=== PATIENT | female | born 1945 | race Caucasian/White ===

== ENCOUNTER 2022-05-24 10:04 | Emergency (ER) | payer BC ==
[~2022-05-24] VITALS: Ht 152.4 cm; Wt 96.2 kg
[2022-05-24 10:05] VITALS: BP_SYST 151
--- NOTE | 2022-05-24 10:05 | NUR ---
BROUGHT BACK TO BED #3 AND TRIAGED. REPORT GIVEN TO FABIO
--- NOTE | 2022-05-24 10:15 | NUR ---
RECEIVED PT FROM [facility]. PT BIB FAMILY WITH C/O LEFT LOWER JAW SWELLING X3 DAYS. SITE CLOSED WITH NOTED EDEMA AND REDNESS. STATES PAIN IS 5/10, THROBBING. PT IS AAOX4. BLIND IN BOTH EYES. NORMAL S1S2. ON R/A. DENIES N/V/D/C. DISTAL PULSE NORMAL, SKIN WARM. SIDERAILS UP X2. SON AT BEDSIDE.
--- NOTE | 2022-05-24 10:17 | NUR ---
DR. INFANTE AT BEDSIDE TO ASSESS PT.
[2022-05-24] MEDS ORDERED: ACETAMINOPHEN 500 MG TABLET PO ONE (10:30)
--- NOTE | 2022-05-24 10:35 | NUR ---
BLOOD OBTAINED AND TAKEN TO LAB.
[2022-05-24 10:41] LABS: BASOPHILS # (AUTO) 0.1 K/uL (0.0-0.2); BASOPHILS % (AUTO) 0.7 % (0.0-2.0); EOSINOPHILS # (AUTO) 0.2 K/uL (0.0-0.4); EOSINOPHILS % (AUTO) 1.7 % (0.0-4.0); HEMATOCRIT 37.3 % (36-48); HEMOGLOBIN 12.2 g/dL (12.0-16.0); LYMPHOCYTES # (AUTO) 0.9 K/uL (1.0-5.5); LYMPHOCYTES % (AUTO) 10.1 % (20.5-51.5); MEAN CORPUSCULAR HEMOGLOBIN 30 pg (27-31); MEAN CORPUSCULAR HGB CONC 33 % (32-36); MEAN CORPUSCULAR VOLUME 91 fL (79.0-98.0); MONOCYTES # (AUTO) 0.7 K/uL (0.0-1.0); MONOCYTES % (AUTO) 7.4 % (1.7-9.3); NEUTROPHILS # (AUTO) 7.3 K/uL (1.8-7.7); NEUTROPHILS % (AUTO) 80.1 % (40.0-70.0); PLATELET COUNT (AUTO) 242 K/uL (130-430); RED BLOOD CELL COUNT(AUTO) 4.09 MIL/uL (4.2-6.2); RED CELL DISTRIBUTION WIDTH 14.5 % (9.0-15.0); WHITE BLOOD COUNT (AUTO) 9.1 K/uL (4.8-10.8)
[2022-05-24 10:52] LABS: ERYTHROCYTE SEDIMENTATION RATE > 130 MM/HR (0-20)
[2022-05-24 10:55] LABS: ANION GAP 7 (5-15); CALCIUM 9.6 mg/dL (8.4-11.0); CHLORIDE 103 mmol/L (98-107); GLUCOSE 104 mg/dL (70-99); UREA NITROGEN, BLOOD 41 mg/dL (8-21)
[2022-05-24 11:00] LABS: ALANINE AMINOTRANSFERASE 16 U/L (12-78); ASPARTATE AMINOTRANSFERASE 16 U/L (10-37); TOTAL BILIRUBIN 0.4 mg/dL (0.0-1.0)
[2022-05-24 11:04] LABS: C-REACTIVE PROTEIN QUANT < 0.2 mg/dL (0-0.5)
--- NOTE | 2022-05-24 11:16 | NUR ---
PT TAKEN FOR CT OF FACE AT THIS TIME.
--- NOTE | 2022-05-24 11:24 | NUR ---
PT BACK FROM CT AND PLACED ON MONITOR.
[2022-05-24] MEDS ORDERED: CLIN-142 PO (12:06)
[2022-05-24] MEDS ORDERED: ACET-2634 PO (12:06)
[2022-05-24 13:01] VITALS: BP_SYST 142
--- NOTE | 2022-05-24 13:04 | NUR ---
Patient given written and verbal discharge instructions and verbalizes understanding. ER MD discussed with patient the results and treatment provided. Patient in stable condition. ID arm band removed. IV catheter removed intact and dressing applied, no active bleeding. Rx of TYLENOL,CLINDAMYCIN given. Patient educated on pain management and to follow up with PMD. Pain Scale 1/10. Opportunity for questions provided and answered. Medication side effect fact sheet provided.
== END 2022-05-24 13:01 | disposition home or self-care (01) ==
LOC: SED 10:04
DX: K11.20 Sialoadenitis, unspecified (principal); R22.0 Localized swelling, mass and lump, head; Z79.899 Other long term (current) drug therapy
CPT/HCPCS: 36415; 70486-TC; 76376; 80053; 85025; 85651-TC; 86140; 99284

== ENCOUNTER 2022-12-14 21:07 | Inpatient (IN) | payer BC ==
[~2022-12-14] VITALS: Ht 152.4 cm; Wt 109.8 kg
[~2022-12-14 21:07] MED LIST: ACET-2634 PO; CLIN-142 PO
[2022-12-14 21:13] VITALS: BP_SYST 140; PULSE 73; RESP 20; TEMP 97.6; O2SAT 93
[2022-12-14 22:38] LABS: BASOPHILS # (AUTO) 0.1 K/uL (0.0-0.2); BASOPHILS % (AUTO) 1.5 % (0.0-2.0); EOSINOPHILS # (AUTO) 0.2 K/uL (0.0-0.4); EOSINOPHILS % (AUTO) 3.7 % (0.0-4.0); LYMPHOCYTES # (AUTO) 0.9 K/uL (1.0-5.5); LYMPHOCYTES % (AUTO) 15.2 % (20.5-51.5); MEAN CORPUSCULAR HEMOGLOBIN 29 pg (27-31); MEAN CORPUSCULAR HGB CONC 32 % (32-36); MEAN CORPUSCULAR VOLUME 91 fL (79.0-98.0); MONOCYTES # (AUTO) 0.6 K/uL (0.0-1.0); MONOCYTES % (AUTO) 10.5 % (1.7-9.3); NEUTROPHILS # (AUTO) 4.3 K/uL (1.8-7.7); NEUTROPHILS % (AUTO) 69.1 % (40.0-70.0); PLATELET COUNT (AUTO) 235 K/uL (130-430); RED CELL DISTRIBUTION WIDTH 16.3 % (9.0-15.0); WHITE BLOOD COUNT (AUTO) 6.2 K/uL (4.8-10.8)
[2022-12-14 22:46] LABS: ALANINE AMINOTRANSFERASE 12 U/L (12-78); ALBUMIN 2.5 g/dL (3.4-4.8); ANION GAP 5 (5-15); ASPARTATE AMINOTRANSFERASE 15 U/L (10-37); CALCIUM 8.6 mg/dL (8.4-11.0); CARBON DIOXIDE 26 mmol/L (23-29); CHLORIDE 110 mmol/L (98-107); CREATININE 2.33 mg/dL (0.55-1.30); GLUCOSE 104 mg/dL (74-106); SODIUM SERUM 141 mmol/L (136-145); TOTAL BILIRUBIN 0.3 mg/dL (0.0-1.0); TOTAL PROTEIN, SERUM 7.1 g/dL (6.4-8.3); UREA NITROGEN, BLOOD 38 mg/dL (8-21)
[2022-12-14 22:49] LABS: POTASSIUM 6.1 mmol/L (3.5-5.1)
[2022-12-14] MEDS ORDERED: KETAMINE 30 MG/3 ML SYRINGE IM ONE (23:00)
[2022-12-14] MEDS ORDERED: LIDOCAINE/EPI 1% 1:100000 20 ML VIAL INJ ONE (23:15)
[2022-12-14] MEDS ORDERED: KETAMINE HCL IN 0.9 % NACL 50 MG/5 ML SYRINGE ONE (23:30)
[2022-12-14] MEDS ORDERED: NACL 0.9% 1,000 ML IV ONE (23:45)
[2022-12-15] MEDS ORDERED: HYDROcodone/ACETAMIN 5-325 MG TAB (NORCO/ VICODIN) PO PRN ×2 (01:15→18:45)
[2022-12-15] MEDS ORDERED: ACETAMINOPHEN 650 MG/20.3 ML UDC PO PRN (01:15)
[2022-12-15] MEDS ORDERED: INSULIN REGULAR, HUMAN 100 UNITS/ML, 3 ML VIAL (humuLIN R) SUBCUT PRN ×2 (01:15→18:45)
[2022-12-15] MEDS ORDERED: MORPHINE 2 MG/ML INJ. SYRINGE IVP PRN (01:15)
[2022-12-15] MEDS ORDERED: KETAMINE 30 MG/3 ML SYRINGE IVP ONE (01:30)
[2022-12-15] MEDS ORDERED: MORPHINE 2 MG/ML INJ. SYRINGE IVP ONE (01:30)
[2022-12-15] MEDS ORDERED: INSULIN REGULAR, HUMAN 10 UNITS/0.1 ML, 3 ML VIAL IVP ONE (01:30)
[2022-12-15] MEDS ORDERED: DEXTROSE 50% JECT 50 ML DISP.SYRIN IVP ONE (01:30)
[2022-12-15] MEDS ORDERED: PRAV10TA37 PO (03:09)
[2022-12-15] MEDS ORDERED: DILT240C96 PO (07:59)
[2022-12-15] MEDS ORDERED: CALC30CA PO (07:59)
[2022-12-15] MEDS ORDERED: FURO20TA4 PO (07:59)
[2022-12-15] MEDS ORDERED: LOSA25TA18 PO (07:59)
[2022-12-15] MEDS ORDERED: PIOG15TA67 PO (07:59)
[2022-12-15] MEDS ORDERED: PRAV20TA59 PO (07:59)
[2022-12-15] MEDS ORDERED: SODI10PO PO (07:59)
[2022-12-15] MEDS ORDERED: FENO54TA4 PO (07:59)
[2022-12-15 12:00] VITALS: BP_SYST 146; PULSE 69; RESP 18; TEMP 97.6; O2SAT 93
[2022-12-15 13:40] VITALS: BP_SYST 144; PULSE 73; RESP 18; TEMP 97.1; O2SAT 97
[2022-12-15 16:00] VITALS: BP_SYST 155; PULSE 80; RESP 18; TEMP 98.1; O2SAT 98
[2022-12-15] MEDS ORDERED: ACETAMINOPHEN 325 MG TABLET PO PRN (18:45)
[2022-12-15] MEDS ORDERED: NALOXONE HCL 0.4 MG/ML AMP (NARCAN) IVP PRN ×2 (18:45)
[2022-12-15] MEDS ORDERED: HYDROcodone/ACETAMIN 10-325 MG TAB PO PRN (18:45)
[2022-12-15] MEDS ORDERED: ONDANSETRON HCL 4 MG/2 ML VIAL IVP PRN (18:45)
[2022-12-15] MEDS ORDERED: LORazepam 2 MG/ML VIAL IVP PRN (18:45)
[2022-12-15 20:30] VITALS: BP_SYST 143; PULSE 84; RESP 16; TEMP 97.6; O2SAT 95
[2022-12-15] MEDS ORDERED: CLINDAMYCIN HCL 150 MG CAPSULE PO SCH (21:00)
[2022-12-15] MEDS ORDERED: PRAVASTATIN SODIUM 20 MG TABLET (PRAVACHOL) PO SCH (21:00)
[2022-12-15] MEDS: ATORVASTATIN 10 MG TABLET PO SCH (22:07)
[2022-12-15] MEDS: NACL 0.9% 1,000 ML IV SCH (22:09)
[2022-12-16] VITALS: BP_SYST 139; PULSE 80; RESP 18; TEMP 98.3; O2SAT 95
[2022-12-16 05:07] LABS: BASOPHILS # (AUTO) 0.1 K/uL (0.0-0.2); BASOPHILS % (AUTO) 1.4 % (0.0-2.0); EOSINOPHILS # (AUTO) 0.3 K/uL (0.0-0.4); EOSINOPHILS % (AUTO) 3.8 % (0.0-4.0); HEMATOCRIT 27.8 % (36-48); HEMOGLOBIN 8.9 g/dL (12.0-16.0); LYMPHOCYTES # (AUTO) 0.8 K/uL (1.0-5.5); MEAN CORPUSCULAR HEMOGLOBIN 30 pg (27-31); MEAN CORPUSCULAR HGB CONC 32 % (32-36); MEAN CORPUSCULAR VOLUME 92 fL (79.0-98.0); MONOCYTES # (AUTO) 0.8 K/uL (0.0-1.0); MONOCYTES % (AUTO) 11.2 % (1.7-9.3); NEUTROPHILS # (AUTO) 4.8 K/uL (1.8-7.7); NEUTROPHILS % (AUTO) 71.6 % (40.0-70.0); PLATELET COUNT (AUTO) 217 K/uL (130-430); RED BLOOD CELL COUNT(AUTO) 3.02 MIL/uL (4.2-6.2); RED CELL DISTRIBUTION WIDTH 16.4 % (9.0-15.0); WHITE BLOOD COUNT (AUTO) 6.7 K/uL (4.8-10.8)
[2022-12-16 05:21] LABS: ANION GAP 5 (5-15); CALCIUM 8.3 mg/dL (8.4-11.0); CARBON DIOXIDE 27 mmol/L (23-29); CHLORIDE 111 mmol/L (98-107); CREATININE 2.44 mg/dL (0.55-1.30); GLUCOSE 120 mg/dL (74-106); PHOSPHORUS 5.1 mg/dL (2.7-4.5); SODIUM SERUM 143 mmol/L (136-145); UREA NITROGEN, BLOOD 40 mg/dL (8-21)
[2022-12-16 05:32] LABS: POTASSIUM 6.3 mmol/L (3.5-5.1)
[2022-12-16] MEDS ORDERED: PIPERACILLIN/TAZO 3.375/DEX-IS 50 ML IV SCH (06:00)
[2022-12-16] MEDS ORDERED: SODIUM POLYSTYRENE SULFONATE 15 GM/60 ML UDBTL PO ONE (06:45)
[2022-12-16] MEDS: PIPERACILLIN/TAZOBACTAM 2.25 GM/ D5W 50 ML IV SCH ×6 (06:54→17:35)
[2022-12-16] MEDS: NACL 0.9% 1,000 ML IV SCH ×2 (06:55→17:35)
[2022-12-16 08:00] VITALS: BP_SYST 154; PULSE 82; RESP 18; TEMP 98.1; O2SAT 93
[2022-12-16] MEDS ORDERED: CALCIFEDIOL PO SCH (09:00)
[2022-12-16] MEDS ORDERED: LOSARTAN POTASSIUM 25 MG TABLET PO SCH (09:00)
[2022-12-16] MEDS: CALCIFEDIOL PO SCH (09:00)
[2022-12-16] MEDS: FENOFIBRATE MICRONIZED PO SCH (09:00)
[2022-12-16] MEDS ORDERED: FENOFIBRATE MICRONIZED PO SCH (09:00)
[2022-12-16] MEDS ORDERED: hydrALAZINE HCL 20 MG/ML VIAL IVP PRN (09:45)
[2022-12-16] MEDS: DILTIAZEM HCL 240 MG CAP.SR.24H PO SCH (09:51)
[2022-12-16] MEDS: PIOGLITAZONE HCL 15 MG TABLET PO SCH (09:51)
[2022-12-16] MEDS: FUROSEMIDE 20 MG TABLET PO SCH (09:52)
[2022-12-16] MEDS: SODIUM ZIRCONIUM CYCLOSILICATE 10 GM POWD.PACK PO SCH (10:02)
[2022-12-16 12:00] VITALS: BP_SYST 140; PULSE 82; RESP 18; TEMP 98.3; O2SAT 94
[2022-12-16 16:00] VITALS: BP_SYST 142; PULSE 82; RESP 18; TEMP 98.5; O2SAT 96
[2022-12-16 19:35] VITALS: BP_SYST 160; PULSE 75; RESP 18; TEMP 96.5; O2SAT 99
[2022-12-16] MEDS: ATORVASTATIN 10 MG TABLET PO SCH (21:03)
[2022-12-17] MEDS: PIPERACILLIN/TAZOBACTAM 2.25 GM/ D5W 50 ML IV SCH ×10 (00:11→23:09)
[2022-12-17] MEDS: NACL 0.9% 1,000 ML IV SCH ×3 (00:12→21:47)
[2022-12-17 00:41] VITALS: BP_SYST 159; PULSE 79; RESP 18; TEMP 97.4; O2SAT 99
[2022-12-17 06:09] LABS: BASOPHILS # (AUTO) 0.1 K/uL (0.0-0.2); BASOPHILS % (AUTO) 0.8 % (0.0-2.0); EOSINOPHILS # (AUTO) 0.2 K/uL (0.0-0.4); EOSINOPHILS % (AUTO) 2.6 % (0.0-4.0); HEMATOCRIT 28.5 % (36-48); HEMOGLOBIN 8.8 g/dL (12.0-16.0); LYMPHOCYTES # (AUTO) 0.8 K/uL (1.0-5.5); MEAN CORPUSCULAR HEMOGLOBIN 29 pg (27-31); MEAN CORPUSCULAR HGB CONC 31 % (32-36); MEAN CORPUSCULAR VOLUME 94 fL (79.0-98.0); MONOCYTES % (AUTO) 12.7 % (1.7-9.3); NEUTROPHILS # (AUTO) 5.9 K/uL (1.8-7.7); NEUTROPHILS % (AUTO) 73.9 % (40.0-70.0); PLATELET COUNT (AUTO) 202 K/uL (130-430); RED BLOOD CELL COUNT(AUTO) 3.04 MIL/uL (4.2-6.2); RED CELL DISTRIBUTION WIDTH 16.6 % (9.0-15.0); WHITE BLOOD COUNT (AUTO) 7.9 K/uL (4.8-10.8)
[2022-12-17 06:17] LABS: ALANINE AMINOTRANSFERASE 12 U/L (12-78); ALBUMIN 2.1 g/dL (3.4-4.8); ANION GAP 5 (5-15); ASPARTATE AMINOTRANSFERASE 16 U/L (10-37); CALCIUM 7.1 mg/dL (8.4-11.0); CARBON DIOXIDE 28 mmol/L (23-29); CHLORIDE 110 mmol/L (98-107); CREATININE 2.38 mg/dL (0.55-1.30); GLUCOSE 117 mg/dL (74-106); PHOSPHORUS 5.1 mg/dL (2.7-4.5); POTASSIUM 5.2 mmol/L (3.5-5.1); SODIUM SERUM 143 mmol/L (136-145); TOTAL BILIRUBIN 0.3 mg/dL (0.0-1.0); TOTAL PROTEIN, SERUM 6.3 g/dL (6.4-8.3); UREA NITROGEN, BLOOD 35 mg/dL (8-21)
[2022-12-17 06:21] LABS: ERYTHROCYTE SEDIMENTATION RATE 31 MM/HR (0-20)
[2022-12-17 08:00] VITALS: O2SAT 98
[2022-12-17 08:51] VITALS: BP_SYST 142; PULSE 87; RESP 19; TEMP 99; O2SAT 98
[2022-12-17] MEDS: CALCIFEDIOL PO SCH (09:00)
[2022-12-17] MEDS: FENOFIBRATE MICRONIZED PO SCH (09:00)
[2022-12-17] MEDS: FUROSEMIDE 20 MG TABLET PO SCH (09:11)
[2022-12-17] MEDS: PIOGLITAZONE HCL 15 MG TABLET PO SCH (09:11)
[2022-12-17] MEDS: DILTIAZEM HCL 240 MG CAP.SR.24H PO SCH (09:12)
[2022-12-17] MEDS: SODIUM ZIRCONIUM CYCLOSILICATE 10 GM POWD.PACK PO SCH (09:13)
[2022-12-17 11:54] VITALS: BP_SYST 136; PULSE 88; RESP 22; TEMP 98.1; O2SAT 100
[2022-12-17 11:54] LABS: BILIRUBIN,URINE NEGATIVE (NEGATIVE); BLOOD, URINE NEGATIVE (NEGATIVE); CLARITY/URINE CLEAR (CLEAR); COLOR,URINE YELLOW (YELLOW); GLUCOSE,URINE TRACE (NEGATIVE); KETONES,URINE NEGATIVE (NEGATIVE); LEUKOCYTE ESTERASE ,URINE NEGATIVE (NEGATIVE); NITRITE, URINE NEGATIVE (NEGATIVE); PROTEIN URINE 3+ (NEGATIVE); UROBILINOGEN,URINE 0.2 (0.2-1.0)
[2022-12-17 12:12] LABS: BACTERIA,URINE FEW /HPF (None Seen); RBC,URINE 0-3 /HPF (0-3); WBC,URINE 0-3 /HPF (0-3)
[2022-12-17 17:30] VITALS: BP_SYST 136; PULSE 75; RESP 21; TEMP 98.3; O2SAT 96
[2022-12-17 18:11] LABS: CHLORIDE,URINE RANDOM 129 mmol/L (55-125)
[2022-12-17 20:00] VITALS: BP_SYST 134; PULSE 78; RESP 20; TEMP 98.2; O2SAT 100
[2022-12-17] MEDS: ATORVASTATIN 10 MG TABLET PO SCH (21:42)
[2022-12-18 01:01] VITALS: BP_SYST 138; PULSE 83; RESP 20; TEMP 98.3; O2SAT 100
[2022-12-18 05:01] LABS: ERYTHROCYTE SEDIMENTATION RATE 48 MM/HR (0-20)
[2022-12-18 05:16] LABS: BASOPHILS # (AUTO) 0.1 K/uL (0.0-0.2); BASOPHILS % (AUTO) 0.6 % (0.0-2.0); EOSINOPHILS # (AUTO) 0.1 K/uL (0.0-0.4); EOSINOPHILS % (AUTO) 1.7 % (0.0-4.0); HEMATOCRIT 26.5 % (36-48); HEMOGLOBIN 8.3 g/dL (12.0-16.0); LYMPHOCYTES # (AUTO) 0.5 K/uL (1.0-5.5); LYMPHOCYTES % (AUTO) 5.7 % (20.5-51.5); MEAN CORPUSCULAR HEMOGLOBIN 29 pg (27-31); MEAN CORPUSCULAR HGB CONC 31 % (32-36); MEAN CORPUSCULAR VOLUME 93 fL (79.0-98.0); MONOCYTES # (AUTO) 0.9 K/uL (0.0-1.0); NEUTROPHILS # (AUTO) 6.8 K/uL (1.8-7.7); PLATELET COUNT (AUTO) 195 K/uL (130-430); RED BLOOD CELL COUNT(AUTO) 2.84 MIL/uL (4.2-6.2); RED CELL DISTRIBUTION WIDTH 15.7 % (9.0-15.0); WHITE BLOOD COUNT (AUTO) 8.4 K/uL (4.8-10.8)
[2022-12-18 05:20] LABS: ANION GAP 5 (5-15); CARBON DIOXIDE 28 mmol/L (23-29); CHLORIDE 108 mmol/L (98-107); GLUCOSE 163 mg/dL (74-106); SODIUM SERUM 141 mmol/L (136-145); UREA NITROGEN, BLOOD 36 mg/dL (8-21)
[2022-12-18 05:21] LABS: PHOSPHORUS 4.7 mg/dL (2.7-4.5)
[2022-12-18] MEDS: PIPERACILLIN/TAZOBACTAM 2.25 GM/ D5W 50 ML IV SCH ×6 (05:23→17:56)
[2022-12-18] MEDS: NACL 0.9% 1,000 ML IV SCH ×2 (06:07→17:59)
[2022-12-18 08:00] VITALS: O2SAT 100
[2022-12-18] MEDS: DILTIAZEM HCL 240 MG CAP.SR.24H PO SCH (08:51)
[2022-12-18] MEDS: SODIUM ZIRCONIUM CYCLOSILICATE 10 GM POWD.PACK PO SCH (08:52)
[2022-12-18] MEDS: PIOGLITAZONE HCL 15 MG TABLET PO SCH (08:52)
[2022-12-18] MEDS: FUROSEMIDE 20 MG TABLET PO SCH (08:52)
[2022-12-18] MEDS: CALCIFEDIOL PO SCH (09:00)
[2022-12-18] MEDS: FENOFIBRATE MICRONIZED PO SCH (09:00)
[2022-12-18 11:30] VITALS: BP_SYST 137; PULSE 74; RESP 20; TEMP 97.9; O2SAT 100
[2022-12-18 16:42] VITALS: BP_SYST 131; PULSE 68; RESP 21; TEMP 97.6; O2SAT 99
[2022-12-18] MEDS ORDERED: EPOETIN ALFA-EPBX 4,000 UNITS/ML VIAL SUBCUT SCH (17:00)
[2022-12-18 20:00] VITALS: BP_SYST 158; PULSE 76; RESP 20; TEMP 99.3; O2SAT 100; O2SAT 96
[2022-12-18] MEDS: ATORVASTATIN 10 MG TABLET PO SCH (21:33)
[2022-12-19] MEDS: PIPERACILLIN/TAZOBACTAM 2.25 GM/ D5W 50 ML IV SCH ×4 (00:07→12:11)
[2022-12-19 00:35] VITALS: BP_SYST 154; PULSE 77; RESP 20; TEMP 97.4; O2SAT 95
[2022-12-19] MEDS: NACL 0.9% 1,000 ML IV SCH (06:08)
[2022-12-19 07:03] LABS: ALANINE AMINOTRANSFERASE 15 U/L (12-78); ANION GAP 7 (5-15); ASPARTATE AMINOTRANSFERASE 18 U/L (10-37); CALCIUM 7.5 mg/dL (8.4-11.0); CARBON DIOXIDE 27 mmol/L (23-29); CHLORIDE 107 mmol/L (98-107); CREATININE 2.57 mg/dL (0.55-1.30); GLUCOSE 138 mg/dL (74-106); PHOSPHORUS 5.1 mg/dL (2.7-4.5); POTASSIUM 4.7 mmol/L (3.5-5.1); SODIUM SERUM 141 mmol/L (136-145); TOTAL BILIRUBIN 0.4 mg/dL (0.0-1.0); TOTAL PROTEIN, SERUM 6.8 g/dL (6.4-8.3); UREA NITROGEN, BLOOD 34 mg/dL (8-21)
[2022-12-19 07:09] LABS: BASOPHILS # (AUTO) 0.1 K/uL (0.0-0.2); BASOPHILS % (AUTO) 1.3 % (0.0-2.0); EOSINOPHILS % (AUTO) 0.3 % (0.0-4.0); HEMOGLOBIN 8.7 g/dL (12.0-16.0); LYMPHOCYTES # (AUTO) 0.4 K/uL (1.0-5.5); LYMPHOCYTES % (AUTO) 5.1 % (20.5-51.5); MEAN CORPUSCULAR HEMOGLOBIN 29 pg (27-31); MEAN CORPUSCULAR HGB CONC 31 % (32-36); MEAN CORPUSCULAR VOLUME 93 fL (79.0-98.0); MONOCYTES # (AUTO) 0.6 K/uL (0.0-1.0); MONOCYTES % (AUTO) 7.4 % (1.7-9.3); NEUTROPHILS # (AUTO) 7.5 K/uL (1.8-7.7); NEUTROPHILS % (AUTO) 85.9 % (40.0-70.0); PLATELET COUNT (AUTO) 194 K/uL (130-430); RED BLOOD CELL COUNT(AUTO) 3.01 MIL/uL (4.2-6.2); RED CELL DISTRIBUTION WIDTH 16.1 % (9.0-15.0); WHITE BLOOD COUNT (AUTO) 8.7 K/uL (4.8-10.8)
[2022-12-19 07:53] LABS: ERYTHROCYTE SEDIMENTATION RATE 77 MM/HR (0-20)
[2022-12-19 08:00] VITALS: BP_SYST 147; PULSE 75; RESP 18; TEMP 97.7; O2SAT 99
[2022-12-19] MEDS: FENOFIBRATE MICRONIZED PO SCH (09:00)
[2022-12-19] MEDS: CALCIFEDIOL PO SCH (09:00)
[2022-12-19] MEDS: SODIUM ZIRCONIUM CYCLOSILICATE 10 GM POWD.PACK PO SCH (10:16)
[2022-12-19] MEDS: FUROSEMIDE 20 MG TABLET PO SCH (10:18)
[2022-12-19] MEDS: PIOGLITAZONE HCL 15 MG TABLET PO SCH (10:18)
[2022-12-19] MEDS: DILTIAZEM HCL 240 MG CAP.SR.24H PO SCH (10:18)
[2022-12-19 12:00] VITALS: BP_SYST 154; PULSE 69; RESP 18; TEMP 97.7; O2SAT 92
[2022-12-19 13:25] VITALS: BP_SYST 134; PULSE 68; RESP 16; TEMP 97.5; O2SAT 95
[2022-12-19 15:51] VITALS: BP_SYST 134; PULSE 70; RESP 18; TEMP 97.7; O2SAT 93
== END 2022-12-19 16:15 | DRG 604 ==
LOC: SED 21:07 → SMU 12-15 01:14
PROVIDERS: ADMIT Family Medicine; ATTEND Preventive Medicine Preventive Medicine/Occupational Environmental Medicine
PROC: 0HQMXZZ Repair Right Foot Skin, External Approach (ICD-10-PCS; principal; 2022-12-15)
DX: S81.011A Laceration without foreign body, right knee, initial encounter (principal); E43 Unspecified severe protein-calorie malnutrition; L03.115 Cellulitis of right lower limb; N17.9 Acute kidney failure, unspecified; Z68.42 Body mass index [BMI] 45.0-49.9, adult; N18.4 Chronic kidney disease, stage 4 (severe); E87.5 Hyperkalemia; S80.01XA Contusion of right knee, initial encounter; S81.001A Unspecified open wound, right knee, initial encounter; I12.9 Hypertensive chronic kidney disease with stage 1 through stage 4 chronic kidney disease, or unspecified chronic kidney disease; R58 Hemorrhage, not elsewhere classified; E66.9 Obesity, unspecified; E83.39 Other disorders of phosphorus metabolism; E83.51 Hypocalcemia; E88.09 Other disorders of plasma-protein metabolism, not elsewhere classified; D64.9 Anemia, unspecified; F03.90 Unspecified dementia, unspecified severity, without behavioral disturbance, psychotic disturbance, mood disturbance, and anxiety; G47.30 Sleep apnea, unspecified; W18.39XA Other fall on same level, initial encounter; Y93.89 Activity, other specified; Y92.098 Other place in other non-institutional residence as the place of occurrence of the external cause; Y99.8 Other external cause status; E83.52 Hypercalcemia
CPT/HCPCS: 36415; 70450-TC; 71045; 72125-TC; 72170-TC; 73030; 73552; 73560-TC; 73590-TC; 76376; 76770; 80048; 80053; 81000; 82435; 82570; 82962; 83735; 84100; 84302; 84484; 85025; 85651-TC; 93005; 97110-GP; 97116-GP; 97530-GP; 99291; J1815; J2543; J7060; Q5106